=== PATIENT | male | born 1955 | race Caucasian/White ===

== ENCOUNTER → 2021-09-19 | Day surgery (SDC) | payer MEDICARE, OTHER ==
[~2021-09-19] MED LIST: BUPIVACAINE MPF 0.25% 10 ML VIAL. ONE; LIDOCAINE 1% PF 30 ML VIAL. ONE; LISI40TA6 PO; MELO15TA23 PO; SIMV80TA17 PO; VENL75TA PO
[2021-09-19 12:35] VITALS: BP 126/87
== END | disposition home or self-care (01) ==
LOC: SURG 11:31
PROVIDERS: ATTEND Anesthesiology
DX: M25.561 Pain in right knee (principal); G47.30 Sleep apnea, unspecified; M19.90 Unspecified osteoarthritis, unspecified site; I10 Essential (primary) hypertension; F32.9 Major depressive disorder, single episode, unspecified; E78.00 Pure hypercholesterolemia, unspecified; Z79.899 Other long term (current) drug therapy; Z98.890 Other specified postprocedural states
CPT/HCPCS: 64454; J3490; 20550; 64450

== ENCOUNTER → 2021-10-03 | Day surgery (SDC) | payer MEDICARE, OTHER ==
[2021-10-03 10:17] VITALS: BP 133/64
== END | disposition home or self-care (01) ==
LOC: SURG 09:27
PROVIDERS: ATTEND Anesthesiology
DX: M25.561 Pain in right knee (principal); I10 Essential (primary) hypertension; M19.90 Unspecified osteoarthritis, unspecified site; E78.00 Pure hypercholesterolemia, unspecified; F32.9 Major depressive disorder, single episode, unspecified; G47.30 Sleep apnea, unspecified; Z79.899 Other long term (current) drug therapy; Z98.890 Other specified postprocedural states
CPT/HCPCS: 64454; A4209; A4657; A4930; J3490; 20550; 64450

== ENCOUNTER → 2021-10-17 | Day surgery (SDC) | payer OTHER ==
[~2021-10-17] MED LIST changes: -BUPIVACAINE MPF 0.25% 10 ML VIAL. ONE; -LIDOCAINE 1% PF 30 ML VIAL. ONE
[2021-10-17 10:30] VITALS: BP 140/83
== END | disposition home or self-care (01) ==
LOC: SURG 10:21
PROVIDERS: ATTEND Anesthesiology
DX: M25.561 Pain in right knee (principal); M17.11 Unilateral primary osteoarthritis, right knee; I10 Essential (primary) hypertension; E78.00 Pure hypercholesterolemia, unspecified; M19.90 Unspecified osteoarthritis, unspecified site; F32.9 Major depressive disorder, single episode, unspecified; Z98.890 Other specified postprocedural states; Z79.899 Other long term (current) drug therapy
CPT/HCPCS: 99214; G0463